=== PATIENT | female | born 1935 | race African-American/Black ===

== ENCOUNTER → 2018-05-04 | Outpatient (CLI) | payer MEDICARE, OTHER ==
[~2018-05-04] MED LIST: AMLO10TA4 PO; ASPI-630 PO; LANS15CA78 PO; METO25TA2 PO; NAPR220C4 PO; NITR1PAT9 TD
== END | disposition home or self-care (01) ==
LOC: LAB 12:13
PROVIDERS: ATTEND Psychiatry & Neurology Neurology with Special Qualifications in Child Neurology
DX: G44.209 Tension-type headache, unspecified, not intractable (principal)
CPT/HCPCS: 36415; 85651

== ENCOUNTER 2018-05-12 11:18 | Emergency (ER) | payer MEDICARE, OTHER ==
[~2018-05-12] VITALS: Ht 157.5 cm; Wt 51.3 kg
[2018-05-12 11:45] VITALS: BP 135/75
[2018-05-12] MEDS ORDERED: IV NORMAL SALINE 500ML BAG 500 ML IV ONE (12:15)
[2018-05-12] MEDS ORDERED: ORPHENADRINE CITRATE 60 MG/2 ML VIAL. IV ONE (12:15)
[2018-05-12] MEDS ORDERED: KETOROLAC 15 MG/ML VIAL. IV ONE (12:15)
[2018-05-12 12:42] LABS: BASO % 0 % (0-3); EOS % 1 % (0-3); HEMATOCRIT 40.5 % (36.0-47.0); HEMOGLOBIN 13.5 g/dL (12.0-15.5); LYMPH # 1.7 x10^3/uL (1.0-4.8); LYMPH % 29 % (24-48); MEAN CORPUSCULAR HEMOGLOBIN 28 pg (25-35); MEAN CORPUSCULAR HGB CONC 33 g/dL (31-37); MEAN CORPUSCULAR VOLUME 84 fL (79-100); MONO # 0.4 x10^3/uL (0.0-1.1); MONO % 7 % (0-9); NEUT # 3.5 x10^3uL (1.8-7.7); NEUT % 62 % (31-73); PLATELET COUNT 243 x10^3/uL (140-400); RED BLOOD COUNT 4.84 x10^6/uL (3.50-5.40); RED CELL DISTRIBUTION WIDTH 14.6 % (11.5-14.5); WHITE BLOOD COUNT 5.7 x10^3/uL (4.0-11.0)
[2018-05-12 12:44] LABS: BILIRUBIN,URINE NEGATIVE (NEG); CLARITY,URINE CLEAR; COLOR,URINE YELLOW; NITRITE,URINE NEGATIVE (NEG); PROTEIN,URINE NEGATIVE (NEG-TRACE)
[2018-05-12 12:48] LABS: CALCIUM 9.3 mg/dL (8.5-10.1); CREATININE 0.7 mg/dL (0.6-1.0); GFR 96.7; POTASSIUM 4.3 mmol/L (3.5-5.1)
[2018-05-12 12:53] LABS: ALBUMIN 3.7 g/dL (3.4-5.0); ALBUMIN/GLOBULIN RATIO 0.9 (1.0-1.7); TOTAL BILIRUBIN 0.6 mg/dL (0.2-1.0); TOTAL PROTEIN 7.6 g/dL (6.4-8.2)
--- NOTE | 2018-05-12 13:03 | RAD ---
Examination: CHEST PA LATERAL History: DIZZINESS, FELL 1 WEEK AGO Comparison/Correlation: 11/08/2013 CTA of the chest Findings: PA and lateral views of the chest were obtained. Sternal wires and mediastinal clips are present. Heart size and pulmonary vasculature are normal. No infiltrate or pleural effusion. Tortuosity of the thoracic aorta is notable. Mild elevation left hemidiaphragm again seen. Scoliosis notable. Impression: No infiltrate. Consider further evaluation if fracture is a persistent concern. Electronically signed by: Wes Roberts MD (05/12/2018 1:00 PM) [facility]
[2018-05-12 13:06] LABS: SQUAMOUS EPITHELIAL CELL,UR FEW /LPF
--- NOTE | 2018-05-12 13:06 | RAD ---
SHOULDER 2+V LEFT History: LEFT SHOULDER PAIN AFTER FALL 1 WEEK AGO Comparison: None. Findings: 3 views of the left shoulder are submitted. There is likely clip of the left axillary region. No acute fracture or dislocation is identified by radiograph. There has been a median sternotomy. Impression: 1. No acute radiographic abnormality is identified. Electronically signed by: Dereck Deluna MD (05/12/2018 1:03 PM) [id number]
[2018-05-12 13:07] LABS: HYALINE CASTS, URINE FEW /HPF
[2018-05-12 13:08] LABS: BACTERIA,URINE FEW /HPF (0-FEW); RBC,URINE RARE /HPF (0-2); WBC,URINE OCC /HPF (0-4)
--- NOTE | 2018-05-12 13:10 | RAD ---
PQRS Compliance statement: One or more of the following individualized dose reduction techniques were utilized for this examination: 1. Automated exposure control. 2. Adjustment of the mA and/or kV according to patient size. 3. Use of iterative reconstruction technique. Indication:FALL ON 05/04, HEADACHE, INJURY TECHNIQUE: CT head without IV contrast COMPARISON:Previous CT from 04/18/2010 FINDINGS: No Extra-axial or intra-axial fluid collection. Punctate high attenuating focus is seen in the anterior right. There is mild diffuse cerebral atrophy. Small wedge-shaped area of low-attenuation is seen extending to the cortex in the right parietal lobe. The ventricles and basal cisterns are within normal limits. Mild periventricular low-attenuation of the right matter is seen. The orbits are within normal limits. Metallic device is seen adjacent to the left greater sphenoid wing likely aneurysm coil. Left frontal craniotomy. No acute calvarial fractures. Visualized paranasal sinuses and mastoid air cells are clear. IMPRESSION: 1. Single punctate high attenuating focus in the anterior right frontal lobe may suggest a contusion. 2. Small area of encephalomalacia in the right parietal lobe. Clinically correlate with prior infarct or injury. 3. Mild white matter changes most likely secondary to chronic microvascular ischemic disease. Indication:FALL ON 05/04, HEADACHE, INJURY TECHNIQUE: CT of the cervical spine without IV contrast with multiplanar reformats. COMPARISON:None FINDINGS: The cervical spine demonstrates straightening. This could be due to muscle spasm or pain. Atlantoaxial joint interval is preserved with mild degenerative changes. No compression deformities. Facet joints are in normal anatomic alignment with multilevel moderate to advanced facet arthropathy. No acute fractures. The noncontrast appearance of the neck soft tissues is within normal limits. Mild emphysema in the visualized lung apices. IMPRESSION: 1. No acute fractures. 2. Moderate to advanced multilevel facet arthropathy with mild to moderate multilevel degenerative disc disease. Electronically signed by: Jonathan Padilla DO (05/12/2018 1:06 PM) [id number]
--- NOTE | 2018-05-12 13:17 | RAD ---
HIP LEFT 2V WITH PELVIS History: LEFT HIP PAIN AFTER FALL 1 WEEK AGO Comparison: None. Findings: AP view of the pelvis and 2 additional views of the left hip are submitted. No acute osseous abnormality is identified. Impression: 1. No acute radiographic abnormality is identified. Electronically signed by: Dereck Deluna MD (05/12/2018 1:12 PM) [facility]
[2018-05-12] MEDS ORDERED: NAPR-514 PO (13:36)
[2018-05-12] MEDS ORDERED: ORPH100T PO (13:36)
--- NOTE | 2018-05-12 13:36 | PHYS DOC ---
Past Medical History Past Medical History: CAD, Hypertension, Other Additional Past Medical Histor: AAA,BRAIN ANUERYSM Past Surgical History: Coronary Bypass Surgery, Hysterectomy, Tonsillectomy, Other Additional Past Surgical Histo: BLADDER LIFT,BRAIN ANUERYSM CLIPPED Alcohol Use: Occasionally Drug Use: None Adult General Chief Complaint Chief Complaint: MECHANICAL FALL HPI HPI Patient is a 83 year old [f__sex] who presents with [] Review of Systems Review of Systems Constitutional: Denies fever or chills [] Eyes: Denies change in visual acuity, redness, or eye pain [] HENT: Denies nasal congestion or sore throat [] Respiratory: Denies cough or shortness of breath [] Cardiovascular: No additional information not addressed in HPI [] GI: Denies abdominal pain, nausea, vomiting, bloody stools or diarrhea [] : Denies dysuria or hematuria [] Musculoskeletal: Denies back pain or joint pain [] Integument: Denies rash or skin lesions [] Neurologic: Denies headache, focal weakness or sensory changes [] Endocrine: Denies polyuria or polydipsia [] All other systems were reviewed and found to be within normal limits, except as documented in this note. Current Medications Current Medications Current Medications Medications (Trade) Dose Ordered Sig/Martha Start Time Stop Time Status Last Admin Dose Admin Ketorolac Tromethamine (Toradol 15mg Vial) 10 mg 1X ONCE 05/12/18 12:15 05/12/18 12:16 DC 05/12/18 13:06 10 MG Orphenadrine Citrate (Norflex) 60 mg 1X ONCE 05/12/18 12:15 05/12/18 12:16 DC 05/12/18 13:05 60 MG Sodium Chloride 500 ml @ 500 mls/hr 1X ONCE 05/12/18 12:15 05/12/18 13:14 DC 05/12/18 13:06 500 MLS/HR Allergies Allergies Allergies Coded Allergies Type Severity Reaction Last Updated Verified Sulfa (Sulfonamide Antibiotics) Allergy Intermediate 05/12/18 Yes iodine Allergy Unknown 05/12/18 Yes Physical Exam Physical Exam Constitutional: Well developed, well nourished, no acute distress, non-toxic appearance. [] HENT: Normocephalic, atraumatic, bilateral external ears normal, oropharynx moist, no oral exudates, nose normal. [] Eyes: PERRLA, EOMI, conjunctiva normal, no discharge. [] Neck: Normal range of motion, no tenderness, supple, no stridor. [] Cardiovascular:Heart rate regular rhythm, no murmur [] Lungs & Thorax: Bilateral breath sounds clear to auscultation [] Abdomen: Bowel sounds normal, soft, no tenderness, no masses, no pulsatile masses. [] Skin: Warm, dry, no erythema, no rash. [] Back: No tenderness, no CVA tenderness. [] Extremities: No tenderness, no cyanosis, no clubbing, ROM intact, no edema. [] Neurologic: Alert and oriented X 3, normal motor function, normal sensory function, no focal deficits noted. [] Psychologic: Affect normal, judgement normal, mood normal. [] Current Patient Data Vital Signs Vital Signs Date Time Temp Pulse Resp B/P (MAP) Pulse Ox O2 Delivery O2 Flow Rate FiO2 05/12/18 11:45 96.1 74 18 135/75 (95) 96 Room Air 96.1 Lab Values Laboratory Tests Test 05/12/18 12:20 05/12/18 12:30 Urine Collection Type Unknown Urine Color Yellow Urine Clarity Clear Urine pH 6.0 Urine Specific [place] 1.020 Urine Protein Negative mg/dL (NEG-TRACE) Urine Glucose (UA) Negative mg/dL (NEG) Urine Ketones (Stick) Negative mg/dL (NEG) Urine Blood Negative (NEG) Urine Nitrite Negative (NEG) Urine Bilirubin Negative (NEG) Urine Urobilinogen Dipstick 1.0 mg/dL (0.2 mg/dL) Urine Leukocyte Esterase Negative (NEG) Urine RBC Rare /HPF (0-2) Urine WBC Occ /HPF (0-4) Urine Squamous Epithelial Cells Few /LPF Urine Bacteria Few /HPF (0-FEW) Urine Hyaline Casts Few /HPF Urine Mucus Mod /LPF White Blood Count 5.7 x10^3/uL (4.0-11.0) Red Blood Count 4.84 x10^6/uL (3.50-5.40) Hemoglobin 13.5 g/dL (12.0-15.5) Hematocrit 40.5 % (36.0-47.0) Mean Corpuscular Volume 84 fL (79-100) Mean Corpuscular Hemoglobin 28 pg (25-35) Mean Corpuscular Hemoglobin Concent 33 g/dL (31-37) Red Cell Distribution Width 14.6 % (11.5-14.5) H Platelet Count 243 x10^3/uL (140-400) Neutrophils (%) (Auto) 62 % (31-73) Lymphocytes (%) (Auto) 29 % (24-48) Monocytes (%) (Auto) 7 % (0-9) Eosinophils (%) (Auto) 1 % (0-3) Basophils (%) (Auto) 0 % (0-3) Neutrophils # (Auto) 3.5 x10^3uL (1.8-7.7) Lymphocytes # (Auto) 1.7 x10^3/uL (1.0-4.8) Monocytes # (Auto) 0.4 x10^3/uL (0.0-1.1) Eosinophils # (Auto) 0.0 x10^3/uL (0.0-0.7) Basophils # (Auto) 0.0 x10^3/uL (0.0-0.2) Sodium Level 132 mmol/L (136-145) L Potassium Level 4.3 mmol/L (3.5-5.1) Chloride Level 96 mmol/L (98-107) L Carbon Dioxide Level 28 mmol/L (21-32) Anion Gap 8 (6-14) Blood Urea Nitrogen 10 mg/dL (7-20) Creatinine 0.7 mg/dL (0.6-1.0) Estimated GFR (Cockcroft-Gault) 96.7 BUN/Creatinine Ratio 14 (6-20) Glucose Level 90 mg/dL (70-99) Calcium Level 9.3 mg/dL (8.5-10.1) Magnesium Level 2.0 mg/dL (1.8-2.4) Total Bilirubin 0.6 mg/dL (0.2-1.0) Aspartate Amino Transferase (AST) 24 U/L (15-37) Alanine Aminotransferase (ALT) 25 U/L (14-59) Alkaline Phosphatase 76 U/L (46-116) Creatine Kinase 111 U/L (26-192) Creatine Kinase MB (Mass) 1.1 ng/mL (0.0-3.6) Creatine Kinase MB Relative Index 1.0 % (0-4) Troponin I Quantitative < 0.017 ng/mL (0.000-0.055) Total Protein 7.6 g/dL (6.4-8.2) Albumin 3.7 g/dL (3.4-5.0) Albumin/Globulin Ratio 0.9 (1.0-1.7) L Laboratory Tests 05/12/18 12:30 Laboratory Tests 05/12/18 12:30 EKG EKG @1302 NSR at 61bpm, NO ST elevation, artifact to V3, Nonspecific t wave inversion to V1-V2 Radiology/Procedures Radiology/Procedures [] Course & Med Decision Making Course & Med Decision Making Pertinent Labs and Imaging studies reviewed. (See chart for details) [] Dragon Disclaimer Dragon Disclaimer This electronic medical record was generated, in whole or in part, using a voice recognition dictation system. Departure Departure Impression: Primary Impression: Fall Additional Impressions: Cervical strain Shoulder sprain Disposition: HOME, SELF-CARE Condition: STABLE Referrals: [facility]AW[facility] WICKER WORKER (PCP) Patient Instructions: Cervical Strain and Sprain with Rehab-[facility], Fall Prevention and Home Safety, [id number], Shoulder Sprain Scripts Orphenadrine Citrate (ORPHENADRINE CITRATE) 100 Mg Tablet.er 100 MG PO BID PRN for MUSCLE PAIN, #14 Prov: TAMI WEST DO 05/12/18 Naproxen (NAPROXEN) 500 Mg Tablet 0.5 TAB PO BID PRN for PAIN, #20 TAB 1 Refill Prov: TAMI WEST DO 05/12/18 Problem Qualifiers Primary Impression: Fall Encounter type: initial encounter Qualified Codes: W19.XXXA - Unspecified fall, initial encounter Additional Impressions: Cervical strain Encounter type: initial encounter Qualified Codes: S16.1XXA - Strain of muscle, fascia and tendon at neck level, initial encounter TAMI WEST DO May 12, 2018 13:36
--- NOTE | 2018-05-12 13:51 | EKG ---
[facility] [address] [place] [address] Test Date: 2018-05-12 Test Time: 13:02:13 Pat Name: TRACE DRUMMOND Department: Room: Gender: F Die Turner: : 1935 Requested By: TAMI WEST Order Number: [id number] Reading MD: Albert Marquez Measurements Intervals [place] Rate: 61 P: 33 [place]: 164 QRS: -18 QRSD: 70 T: 55 QT: 446 QTc: 450 Interpretive Statements SINUS RHYTHM LEFTWARD AXIS RVH WITH REPOLARIZATION ABNORMALITY QRS(T) CONTOUR ABNORMALITY CONSIDER ANTEROSEPTAL MYOCARDIAL DAMAGE CONSISTENT WITH INFERIOR INFARCT PROBABLY OLD ABNORMAL ECG Electronically Signed On 05-12-2018 16:10:41 CHIEF EXECUTIVE OR MANAGING DIRECTOR by Albert Marquez
== END 2018-05-12 14:20 | disposition home or self-care (01) ==
LOC: ER 11:18
DX: S43.402A Unspecified sprain of left shoulder joint, initial encounter (principal); S43.401A Unspecified sprain of right shoulder joint, initial encounter; S16.1XXA Strain of muscle, fascia and tendon at neck level, initial encounter; M25.552 Pain in left hip; R42 Dizziness and giddiness; I10 Essential (primary) hypertension; I25.10 Atherosclerotic heart disease of native coronary artery without angina pectoris; Z95.5 Presence of coronary angioplasty implant and graft; Z88.2 Allergy status to sulfonamides; Z91.041 Radiographic dye allergy status; W18.39XA Other fall on same level, initial encounter; Y93.89 Activity, other specified; Y92.89 Other specified places as the place of occurrence of the external cause; Y99.8 Other external cause status
CPT/HCPCS: 36415; 70450; 71046; 72125; 73030; 73502; 80053; 81001; 82553; 83735; 84484; 85025; 93005; 96361; 96374; 96375; 99285; J1885; J2360; J7040

== ENCOUNTER 2021-07-05 12:11 | Emergency (ER) | payer MEDICARE, OTHER ==
[~2021-07-05] VITALS: Ht 157.5 cm; Wt 51.4 kg
[~2021-07-05 12:11] MED LIST changes: +LANS15CA73 PO; -LANS15CA78 PO; +NAPR-514 PO; +NITR1PAT73 TD; -NITR1PAT9 TD; +ORPH100T PO
[2021-07-05 12:31] VITALS: BP 158/81
[2021-07-05] MEDS ORDERED: OXYMETAZOLINE 0.05% NASAL SPRAY 30ML BOTTLE. NS ONE (12:45)
--- NOTE | 2021-07-05 12:54 | PHYS DOC ---
Past Medical History Past Medical History: CAD, Hypertension, Other Additional Past Medical Histor: AAA, BRAIN ANEURYSM Past Surgical History: Coronary Bypass Surgery, Hysterectomy, Tonsillectomy, Other Additional Past Surgical Histo: BLADDER LIFT,BRAIN ANEURYSM CLIPPED Smoking Status: Never Smoker Alcohol Use: Occasionally Drug Use: None General Adult EDM: Chief Complaint: NOSEBLEED HPI: HPI: Patient is a 86 year old female who presents with nosebleed. Patient states that her nose has been bleeding for the last 2 days. Patient takes a baby aspirin daily. Patient has packed her nose with cotton. Patient states every time she removes it starts bleeding again. Patient also reports that she has had body aches, congestion, cough for 2 days. Denies fever. No chest pain or shortness of breath. History of hypertension, high cholesterol. Review of Systems: Review of Systems: ROS At least 10 ROS systems have been reviewed and are negative except as documented in the HPI. General: Negative except as outlined in HPI above. Skin: Negative except as outlined in HPI above. HEENT: Negative except as outlined in HPI above. Neck: Negative except as outlined in HPI above. Respiratory: Negative except as outlined in HPI above.. Cardiovascular: Negative except as outlined in HPI above. Abdomen: Negative except as outlined in HPI above. : Negative except as outlined in HPI above. Back/MSK: Negative except as outlined in HPI above. Neuro: Negative except as outlined in HPI above. Psych: Negative except as outlined in HPI above. Heart Score: C/O Chest Pain: No Risk Factors: Risk Factors: DM, Current or recent (<one month) smoker, HTN, HLP, family history of CAD, obesity. Risk Scores: Score 0 - 3: 2.5% MACE over next 6 weeks - Discharge Home Score 4 - 6: 20.3% MACE over next 6 weeks - Admit for Clinical Observation Score 7 - 10: 72.7% MACE over next 6 weeks - Early Invasive Strategies Current Medications: Current Medications Medications (Trade) Dose Ordered Sig/Martha Start Time Stop Time Status Last Admin Dose Admin Oxymetazoline HCl (Afrin) 2 spray 1X ONCE 07/05/21 12:45 07/05/21 12:46 DC Allergies: Allergies: Allergies Coded Allergies Type Severity Reaction Last Updated Verified Sulfa (Sulfonamide Antibiotics) Allergy Intermediate 05/12/18 Yes iodine Allergy Unknown 05/12/18 Yes Physical Exam: PE: Constitutional: Well developed, well nourished, no acute distress, non-toxic appearance. [] HENT: Normocephalic, atraumatic, bilateral external ears normal, oropharynx [address], no oral exudates, left nostril bleeding Eyes: PERRLA, EOMI, conjunctiva normal, no discharge. [] Neck: Normal range of motion, no tenderness, supple, no stridor. [] Cardiovascular:Heart rate regular rhythm, no murmur [] Lungs & Thorax: Bilateral breath sounds clear to auscultation [] Abdomen: Bowel sounds normal, soft, no tenderness, no masses, no pulsatile masses. [] Skin: Warm, dry, no erythema, no rash. [] Back: No tenderness, no CVA tenderness. [] Extremities: No tenderness, no cyanosis, no clubbing, ROM intact, no edema. [] Neurologic: Alert and oriented X 3, normal motor function, normal sensory function, no focal deficits noted. [] Psychologic: Affect normal, judgement normal, mood normal. [] EKG: EKG: [] Radiology/Procedures: Radiology/Procedures: [] Course & Med Decision Making: Course & Med Decision Making Pertinent Labs and Imaging studies reviewed. (See chart for details) [] 86-year-old female presents with epistaxis of left nostril. Nosebleed started 2 days ago. Nostril was packed with toilet paper. Patient stated that over time she was to remove it with start bleeding again. Packing was removed in the ER. Nose did not bleed after packing was removed. H&H was unremarkable. Patient was also reporting congestion and body aches. Patient was tested for influenza and Covid which both were negative. Discussed at home instructions for epistaxis. Advised patient not to pick her nose or blow her nose. Discussed return precautions. Patient states that she understands discharge instructions Dragon Disclaimer: Dragradha Disclaimer: This electronic medical record was generated, in whole or in part, using a voice recognition dictation system. Departure Departure Impression: Primary Impression: Mild epistaxis Disposition: HOME / SELF CARE / HOMELESS Condition: STABLE Referrals: [facility]AWAY DINING ROOM MAID (PCP) Patient Instructions: Nosebleed, [id number] Additional Instructions: You were tested for Covid and influenza both were negative. Your packing was removed from your nose and your nose did not start bleeding. If you return home and bleeding continues. Blow your nose, use the Afrin, and hold pressure for 20 minutes. You can repeat this process one other time if bleeding does not stop. If bleeding continues after your second attempt. You may return to the ER for further evaluation. EMERGENCY DEPARTMENT GENERAL DISCHARGE INSTRUCTIONS Thank you for coming to [facility] Emergency Department (ED) today and trusting us with you care. We trust that you had a positive experience in our Emergency Department. If you wish to speak to the department management, you may call the Director at [phone]. YOUR FOLLOW UP INSTRUCTIONS ARE FOLLOWS: 1. Do you have a private Doctor? If you do not have a private doctor, please ask for a resource list of physicians or clinics that may be able to assist you with follow up care. 2. The Emergency Physicain has interpreted your x-rays. The X-Ray specialist will also review them. If there is a change in the findings, you will be notified in 48 hours when at all possible. 3. A lab test or culture has been done, your results will be reviewed and you will be notified if you need a change in treatment. ADDITIONAL INSTRUCTIONS AND INFORMATION: 1. Your care today has been supervised by a physician who is specially trained in emergency care. Many problems require more than one evaluation for a complete diagnosis and treatment. We recommend that you schedule your follow up appointment as recommended to ensure complete treatment of you illness or injury. If you are unable to obtain follow up care and continue to have a problem, or if your condition worsens, we recommend that you return to the ED. 2. We are not able to safely determine your condition over the phone nor are we able to give sound medical advice over the phone. For these safety reasons, if you call for medical advice we will ask you to come to the ED for further evaluation. 3. If you have any questions regarding these discharge instructions please call the ED at [phone]. SAFETY INFORMATION: In the interest of safety, wellness, and injury prevention; we encourage you to wear your sealbelt, if you smoke; quite smoking, and we encourage family to use a protective helmet for bicycling and other sporting events that present an increased risk for head injury. IF YOUR SYMPTOMS WORSEN OR NEW SYMPTOMS DEVELOP, OR YOU HAVE CONCERNS ABOUT YOUR CONDITION; OR IF YOUR CONDITION WORSENS WHILE YOU ARE WAITING FOR YOUR FOLLOW UP APPOINTMENT; EITHER CONTACT YOUR PRIMARY CARE DOCTOR, THE PHYSICIAN WHOSE NAME AND NUMBER YOU WERE GIVEN, OR RETURN TO THE ED IMMEDIATELY. TRE REDDING APRN Jul 05, 2021 12:54
[2021-07-05 13:20] LABS: INFLUENZA A PATIENT NEGATIVE (NEGATIVE); INFLUENZA B PATIENT NEGATIVE (NEGATIVE)
[2021-07-05 13:51] LABS: BASO % 1 % (0-3); EOS # 0.1 x10^3/uL (0.0-0.7); EOS % 1 % (0-3); HEMATOCRIT 39.5 % (36.0-47.0); HEMOGLOBIN 12.7 g/dL (12.0-15.5); LYMPH # 1.7 x10^3/uL (1.0-4.8); LYMPH % 23 % (24-48); MEAN CORPUSCULAR HEMOGLOBIN 26 pg (25-35); MEAN CORPUSCULAR HGB CONC 32 g/dL (31-37); MEAN CORPUSCULAR VOLUME 81 fL (79-100); MONO # 0.7 x10^3/uL (0.0-1.1); MONO % 9 % (0-9); NEUT # 4.9 x10^3/uL (1.8-7.7); NEUT % 66 % (31-73); PLATELET COUNT 219 x10^3/uL (140-400); RED CELL DISTRIBUTION WIDTH 15.7 % (11.5-14.5); WHITE BLOOD COUNT 7.5 x10^3/uL (4.0-11.0)
== END 2021-07-05 14:47 | disposition home or self-care (01) ==
LOC: ER 12:11
DX: R04.0 Epistaxis (principal); Z20.822 Contact with and (suspected) exposure to COVID-19; I10 Essential (primary) hypertension; I25.10 Atherosclerotic heart disease of native coronary artery without angina pectoris; Z95.1 Presence of aortocoronary bypass graft; Z88.2 Allergy status to sulfonamides; Z88.8 Allergy status to other drugs, medicaments and biological substances
CPT/HCPCS: 36415; 85025; 87426; 87804; 99283; U0003; U0005